=== PATIENT | male | born 1995 | race Caucasian/White ===

== ENCOUNTER 2017-02-18 13:07 | Emergency (ER) | payer OTHER ==
[~2017-02-18] VITALS: Ht 182.9 cm; Wt 86.4 kg
[2017-02-18] MEDS ORDERED: ALEV220C2 PO (13:16)
[2017-02-18] MEDS ORDERED: IMIT50TA PO (13:16)
--- NOTE | 2017-02-18 14:26 | REP ---
Pain after trauma. PRIORS: None. FINDINGS: The compartments are symmetric and relatively well maintained. There is no acute fracture or destructive osseous lesion. Signed by Sesar Mendiola DO 02/18/2017 02:33 P
[2017-02-18 15:45] VITALS: BP 128/78
== END 2017-02-18 15:46 | disposition home or self-care (01) ==
LOC: M ED 13:07
DX: S83.422A Sprain of lateral collateral ligament of left knee, initial encounter (principal); X50.9XXA Other and unspecified overexertion or strenuous movements or postures, initial encounter; Y92.838 Other recreation area as the place of occurrence of the external cause; Y93.23 Activity, snow (alpine) (downhill) skiing, snowboarding, sledding, tobogganing and snow tubing; Y99.8 Other external cause status